=== PATIENT | male | born 1950 | race Caucasian/White ===

== ENCOUNTER 2016-07-26 20:50 | Inpatient (IN) | payer MEDICARE, BC ==
--- NOTE | ~2016-07-26 | DS ---
Discharge Summary [facility] [address] [place]. [address] NAME: ROBERT MCDUFFIE : 50 STATUS : DIS IN PAT#: [id number] AGE: 66 ADM/REG DATE : 07/28/16 MR#: [id number] REPORT SERV DATE: 07/30/16 DICTATED BY: KAY PRITCHETT DATE: 07/29/16 REPORT STATUS : Draft TRANSCRIBED BY: MODL DATE: 07/29/16 ADMISSION DATE: 07/28/2016 DISCHARGE DATE: 07/29/2016 DISCHARGE DIAGNOSES: 1. Syncope, etiology is uncertain. 2. Chronic artery disease, medical treatment was needed, had a mild less than 50% lesion to the LAD. 3. Diabetes mellitus with insulin pump use at home. 4. Hypertension, the patient has been monitored by primary care physician and his labor service representative. CONSULTANTS: Otf Marquis MD. PROCEDURES: Cardiac catheterization, has a diffuse moderate luminal irregularity with 50% disease at the mid portion of the left anterior descending coronary artery. No significant occlusive coronary artery disease and also has a normal left ventricular systolic function. HISTORY OF PRESENT ILLNESS: This is a 66-year-old male patient, who suffers from diabetes type 1, who came to the hospital with a syncopal episode. Please see dictated H and P. HOSPITAL COURSE: He was admitted to the hospital with a syncopal episode evaluation. He has not had a repeated syncopal episode. During the workup, he was found to have a new finding of left bundle-branch block on the electrocardiogram, although his troponin was negative. Was seen by Dr. Marquis from the [facility] and was thought further cardiac evaluation with cardiac catheterization was needed. He had a cardiac catheterization yesterday, did not show any focal occlusive disease. Therefore, medical management was recommended. He will be on aspirin 81 mg once a day and Lipitor 40 mg once at night. His syncopal episode was not well explained from this mild disease from coronary artery disease. I explained to the patient about the current finding and followup plan. Also, he was noted to have a little more blood pressure being slightly elevated than before. Prognosis has been discussed with Dr. Brown and Dr. Merino about his blood pressure. He does have home monitoring at home. At this point, we are not going to start him on any hypertensive medication in the hospital. I will defer ambulatory monitoring to the patient, primary care physician, and labor service representative. Overall, had a stable hospitalization, maximized inpatient benefit, and will be discharged home with aspirin 81 mg once a day, Lipitor 40 mg once at night, and continue his home insulin pump. TIME SPENT: More than 30 minutes in patient education and explanation. EKL/MODL Discharge Summary [address] [address] NAME: ROBERT MCDUFFIE : 50 STATUS : DIS IN PAT#: [id number] AGE: 66 ADM/REG DATE : 07/28/16 MR#: [id number] REPORT SERV DATE: 07/30/16 DICTATED BY: KAY PRITCHETT DATE: 07/29/16 REPORT STATUS : Draft TRANSCRIBED BY: ASHTYN DATE: 07/29/16 Kay Pritchett M.D. / [id number] CC: Sandra Clayton M.D.
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
--- NOTE | ~2016-07-26 | HP ---
History And Physical [facility] [address] [place]. [address] NAME: ROBERT MCDUFFIE : 50 STATUS : ADM Rustam PAT#: [id number] AGE: 66 ADM/REG DATE : 07/26/16 MR#: [id number] REPORT SERV DATE: 07/27/16 DICTATED BY: ARMIN JEONG DATE: 07/27/16 REPORT STATUS : Draft TRANSCRIBED BY: MODL DATE: 07/27/16 DATE OF ADMISSION: 07/26/2016 CHIEF COMPLAINT: A 66-year-old male presenting with a syncopal episode and palpitations. HISTORY OF PRESENT ILLNESS: The patient's history was obtained through careful interview with the patient and , coupled with review of [facility] medical records. The patient states that he has been having intermittent spells for the last three months. He states that about three months ago, he had the first "spell." He was leaving his place of employment and it was raining outside, so he decided to run across the parking lot, as he was making his way across the parking lot running, he suddenly felt extremely dizzy and lightheaded and fell to the ground. When he first tried to get up he felt dizzy again, and this time, he fell and lost consciousness, and a workmate briefly recalls a slight convulsion episode the patient had on the ground in the parking lot. He recovered, however, from the spell and decided to not to pursue any medical professional to evaluate this. Although he has not had quite as dramatic spells since that first episode, he states that he has had a near syncopal episode, usually brought on by exertion about every other week. Despite having these frequent spells, the patient continues to exercise quite frequently. He will go to the gym and run on an elliptical or some kind of treadmill and he states he does not have these symptoms in that context. Then, on the night of admission, he was going out with his . He once again felt as if he wanted to run to the side of the home into his car, but on the way, he stubbed his toe on the driveway pavement and he wonders if this triggered another one of these events, as he suddenly felt lightheaded again, had palpitations, and completely passed out. He fell to the ground and a family member apparently witnessed another convulsion like activity. No one is certain about how long he was completely passed out for, but it seems that was only perhaps 20 or 30 seconds at most. Afterwards, he checked his blood sugar which was 118, and he states that after all of these episodes he has checked his blood sugar and it was never low. There is no shortness of breath. He did develop a chest discomfort and he has had slight discomfort like this in the past. He describes it as a tightness and heaviness and not really "pain." He has no radiation, a 6/10 severity and it seems to be associated with palpitations as well. He did suffer slight nausea, but no vomiting. REVIEW OF SYSTEMS: Otherwise, a 14-point review of systems was obtained and was negative. History And Physical [address] [place]. [address] NAME: ROBERT MCDUFFIE : 50 STATUS : ADM Rustam PAT#: [id number] AGE: 66 ADM/REG DATE : 07/26/16 MR#: [id number] REPORT SERV DATE: 07/27/16 DICTATED BY: ARMIN JEONG DATE: 07/27/16 REPORT STATUS : Draft TRANSCRIBED BY: ASHTYN DATE: 07/27/16 PAST MEDICAL HISTORY: 1. Type 1 diabetes, diagnosed when he was 10 years old in 1959. 2. Pneumonia. 3. Retinopathy. PAST SURGICAL HISTORY: Cholecystectomy and appendectomy. ALLERGIES: PENICILLIN. SOCIAL HISTORY: No tobacco abuse. No alcohol abuse. He is . He has no children. 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 He goes to the gym frequently. FAMILY HISTORY: Mother with diabetes. Father with multiple. CURRENT MEDICATIONS: Include the insulin pump and multivitamin. PHYSICAL EXAMINATION: VITAL SIGNS: Temperature 98.3, pulse 96, blood pressure 157/87, respiratory rate 18, O2 saturation 97% on room air. GENERAL: A pleasant, cooperative male. No evidence of distress. HEENT: Pupils equal, round, and reactive to light. No conjunctival pallor. No scleral icterus. Nares are patent. Oropharynx is clear of obstruction. Mildly dry mucous membranes. NECK: Trachea midline. No thyromegaly. LYMPH: No cervical lymphadenopathy. No supraclavicular lymphadenopathy. RESPIRATORY: Clear to auscultation at bases. No wheezes, rales, or rhonchi. Normal respiratory effort. CARDIOVASCULAR: Regular rate and rhythm. No murmurs, rubs, or gallops. No extremity edema is appreciated. ABDOMEN: Soft, nontender, nondistended. Normal bowel sounds auscultated throughout. No hepatosplenomegaly. DERMATOLOGICAL: Warm and dry extremities. No pallor. No cyanosis. PSYCHIATRIC: Normal affect. Good mood. Alert and oriented x3. LABORATORY DATA: INR 1.0. Troponin negative. White blood count 5.9, hemoglobin 15, hematocrit 43, platelets 189. Sodium 144, potassium 3.8, chloride 107, bicarb 29, BUN 15, creatinine 1.19, glucose 109. STUDIES: 1. Chest x-ray by my own evaluation shows no acute cardiopulmonary process. 2. EKG by my own evaluation shows sinus rhythm, left bundle branch block. 3. CT scan of the brain without contrast shows no acute intracranial process. ASSESSMENT AND PLAN: 1. Syncope with palpitations check orthostatics. Consult Cardiology. Consider Holter monitor or event monitor (?). Chest pain. Check an echocardiogram. Check cardiac stress test. Start on aspirin. History And Physical [address] [place]. [address] NAME: ROBERT MCDUFFIE : 50 STATUS : ADM Rustam PAT#: [id number] AGE: 66 ADM/REG DATE : 07/26/16 MR#: [id number] REPORT SERV DATE: 07/27/16 DICTATED BY: ARMIN JEONG DATE: 07/27/16 REPORT STATUS : Draft TRANSCRIBED BY: MODL DATE: 07/27/16 1. New left bundle branch block. Check an echocardiogram. Check telemetry. 2. Type 1 diabetes. Seems to be well controlled. No reported hypoglycemia. Continue insulin pump. Check hemoglobin A1c. KPL/MAGUIL Armin Jeong M.D. / [id number] CC: Sandra Clayton M.D. David Huffman, M.D.
[~2016-07-26 20:50] MED LIST: ATACAND8 MG PO; INSULIN ASPART SC; MULTIPLE VIT PO
[2016-07-26 20:53] LABS: BASOPHILS 0.3 %; BASOPHILS ABSOLUTE 0.02 10/3/uL (0.0-0.16); EOSINOPHILS 2.7 %; EOSINOPHILS ABSOLUTE 0.16 10/3/uL (0.0-0.53); HEMATOCRIT 43.5 % (40.0-51.0); HEMOGLOBIN 15.5 g/dL (13.6-17.8); IMMATURE GRANULOCYTES 0.3 %; IMMATURE GRANULOCYTES ABSOLUTE 0.02 10/3/uL (0.0-0.11); LYMPHOCYTES 16.5 %; LYMPHOCYTES ABSOLUTE 0.98 10/3/uL (0.67-4.30); MANUAL DIFF NO %; MEAN CORPUS HGB CONC 35.6 g/dL (32.0-36.0); MEAN CORPUSCULAR HEMOGLOB 30.8 pg (26.0-34.0); MEAN CORPUSCULAR VOLUME 86.5 fL (80-100); MEAN PLATELET VOLUME 10.2 fL (9.2-13.0); MONOCYTES 10.1 %; NEUTROPHILS 70.1 %; NEUTROPHILS ABSOLUTE 4.16 10/3/uL (2.02-8.40); PLATELET COUNT 189 10/3/uL (150-400); RBC DISTRIBUTION WIDTH 12.3 % (12.0-16.0); RED CELL COUNT 5.03 10/6/uL (4.7-6.1); WHITE BLOOD CELLS 5.9 10/3/uL (4.5-10.5)
[2016-07-26 21:01] LABS: PROTIME (NOT ORD) 13.5 SEC (12.0-14.5)
[2016-07-26 21:02] LABS: PARTIAL THROMBO TIME 33.7 SEC (22.5-37.2)
[2016-07-26 21:09] LABS: BUN (BLOOD UREA NITROGEN) 15 MG/DL (6-23); CALCIUM, SERUM 8.8 MG/DL (8.5-10.4); CHEST PAIN PROFILE TAT 0 Hrs 22 Mins; CHLORIDE, SERUM 107 MMOL/L (96-112); CO2 (CARBON DIOXIDE) 29 MMOL/L (24-34); CREATININE 1.19 MG/DL (0.70-1.30); GFR AFRICAN AMERICAN 73 ML/MIN (>=60); GFR NON AFRICAN AMERICAN 63 ML/MIN (>=60); GLUCOSE, SERUM 109 MG/DL (60-99); POTASSIUM, SERUM 3.8 MMOL/L (3.5-5.3); SODIUM, SERUM 144 MMOL/L (135-148); TROPONIN I <0.02 NG/ML (<0.05)
[2016-07-27 05:59] LABS: BASOPHILS 0.3 %; BASOPHILS ABSOLUTE 0.02 10/3/uL (0.0-0.16); EOSINOPHILS 2.5 %; EOSINOPHILS ABSOLUTE 0.16 10/3/uL (0.0-0.53); HEMATOCRIT 42.1 % (40.0-51.0); HEMOGLOBIN 14.7 g/dL (13.6-17.8); IMMATURE GRANULOCYTES 0.3 %; IMMATURE GRANULOCYTES ABSOLUTE 0.02 10/3/uL (0.0-0.11); LYMPHOCYTES 24.3 %; LYMPHOCYTES ABSOLUTE 1.55 10/3/uL (0.67-4.30); MEAN CORPUS HGB CONC 34.9 g/dL (32.0-36.0); MEAN CORPUSCULAR HEMOGLOB 30.2 pg (26.0-34.0); MEAN CORPUSCULAR VOLUME 86.4 fL (80-100); MEAN PLATELET VOLUME 10.5 fL (9.2-13.0); MONOCYTES 11.1 %; MONOCYTES ABSOLUTE 0.71 10/3/uL (0.21-1.20); NEUTROPHILS 61.5 %; NEUTROPHILS ABSOLUTE 3.93 10/3/uL (2.02-8.40); PLATELET COUNT 181 10/3/uL (150-400); RBC DISTRIBUTION WIDTH 12.3 % (12.0-16.0); RED CELL COUNT 4.87 10/6/uL (4.7-6.1); WHITE BLOOD CELLS 6.4 10/3/uL (4.5-10.5)
[2016-07-27 06:00] LABS: MANUAL DIFF NO %
[2016-07-27 06:05] LABS: INTERNATIONAL NORMAL RATI 1.1 UNITS (-); PARTIAL THROMBO TIME 33.5 SEC (22.5-37.2); PROTIME (NOT ORD) 13.8 SEC (12.0-14.5)
[2016-07-27 06:29] LABS: A/G RATIO 1.2 (0.7-1.9); ALBUMIN 3.3 G/DL (3.5-5.0); ALKALINE PHOSPHATASE 57 U/L (45-117); BUN (BLOOD UREA NITROGEN) 15 MG/DL (6-23); CALCIUM, SERUM 8.9 MG/DL (8.5-10.4); CHLORIDE, SERUM 111 MMOL/L (96-112); CO2 (CARBON DIOXIDE) 27 MMOL/L (24-34); CREATININE 1.14 MG/DL (0.70-1.30); GFR AFRICAN AMERICAN 77 ML/MIN (>=60); GFR NON AFRICAN AMERICAN 67 ML/MIN (>=60); GLOBULIN 2.7 G/DL (2.5-4.1); SGOT(AST) 15 U/L (5-40); SGPT(ALT) 24 U/L (5-65); SODIUM, SERUM 146 MMOL/L (135-148); TOTAL BILIRUBIN 0.6 MG/DL (0-1.2); TROPONIN I <0.02 NG/ML (<0.05)
[2016-07-27 06:31] LABS: GLUCOSE, SERUM 199 MG/DL (60-99)
[2016-07-27 07:03] LABS: B NATRIURETIC PEPTIDE (BNP) 23.6 PG/ML (0-100)
[2016-07-28 04:25] LABS: BASOPHILS 0.3 %; BASOPHILS ABSOLUTE 0.02 10/3/uL (0.0-0.16); EOSINOPHILS 3.1 %; EOSINOPHILS ABSOLUTE 0.18 10/3/uL (0.0-0.53); HEMATOCRIT 43.5 % (40.0-51.0); HEMOGLOBIN 15.3 g/dL (13.6-17.8); IMMATURE GRANULOCYTES 0.3 %; IMMATURE GRANULOCYTES ABSOLUTE 0.02 10/3/uL (0.0-0.11); LYMPHOCYTES 22.9 %; LYMPHOCYTES ABSOLUTE 1.35 10/3/uL (0.67-4.30); MEAN CORPUS HGB CONC 35.2 g/dL (32.0-36.0); MEAN CORPUSCULAR HEMOGLOB 30.2 pg (26.0-34.0); MEAN CORPUSCULAR VOLUME 85.8 fL (80-100); MEAN PLATELET VOLUME 10.3 fL (9.2-13.0); MONOCYTES 11.2 %; MONOCYTES ABSOLUTE 0.66 10/3/uL (0.21-1.20); NEUTROPHILS 62.2 %; NEUTROPHILS ABSOLUTE 3.66 10/3/uL (2.02-8.40); PLATELET COUNT 177 10/3/uL (150-400); RBC DISTRIBUTION WIDTH 12.4 % (12.0-16.0); RED CELL COUNT 5.07 10/6/uL (4.7-6.1); WHITE BLOOD CELLS 5.9 10/3/uL (4.5-10.5)
[2016-07-28 04:26] LABS: MANUAL DIFF NO %
[2016-07-28 04:28] LABS: INTERNATIONAL NORMAL RATI 1.1 UNITS (-); PROTIME (NOT ORD) 13.6 SEC (12.0-14.5)
[2016-07-28 04:34] LABS: BUN (BLOOD UREA NITROGEN) 18 MG/DL (6-23); CALCIUM, SERUM 8.7 MG/DL (8.5-10.4); CHLORIDE, SERUM 111 MMOL/L (96-112); CHOL/HDL RATIO(NOT ORDER) 3.4 (0-5); CHOLESTEROL 173 MG/DL (< 200); CO2 (CARBON DIOXIDE) 27 MMOL/L (24-34); CREATININE 1.13 MG/DL (0.70-1.30); GFR AFRICAN AMERICAN 78 ML/MIN (>=60); GFR NON AFRICAN AMERICAN 67 ML/MIN (>=60); HDL CHOLESTEROL 51 MG/DL (> 39); LDL CHOLESTEROL 104 MG/DL (< 130); NON-HDL CHOLESTEROL 122 MG/DL (< 160); POTASSIUM, SERUM 3.9 MMOL/L (3.5-5.3); SODIUM, SERUM 145 MMOL/L (135-148); TRIGLYCERIDE 92 MG/DL (< 150)
[2016-07-28 04:35] LABS: GLUCOSE, SERUM 122 MG/DL (60-99)
[2016-07-29] MEDS ORDERED: ASAB PO (13:15)
[2016-07-29] MEDS ORDERED: LIPITOR40 PO (13:16)
[2016-09-09] MEDS ORDERED: CRESTOR5 MG PO (08:34)
[2016-09-09] MEDS ORDERED: NOVOLOGMIX SC (08:34)
[2016-09-10] MEDS ORDERED: ULTRAM50 PO (14:07)
== END 2016-07-29 13:45 | disposition home or self-care (01) | DRG 287 ==
LOC: ER 20:50 → CDU1 22:50 → SSU1 07-28 12:43
PROVIDERS: Internal Medicine; Internal Medicine Cardiovascular Disease; Nurse Practitioner Acute Care
PROC: 4A023N7 Measurement of Cardiac Sampling and Pressure, Left Heart, Percutaneous Approach (ICD-10-PCS; principal; 2016-07-26)
PROC: B2151ZZ Fluoroscopy of Left Heart using Low Osmolar Contrast (ICD-10-PCS; 2016-07-26)
PROC: B2111ZZ Fluoroscopy of Multiple Coronary Arteries using Low Osmolar Contrast (ICD-10-PCS; 2016-07-26)
DX: I25.10 Atherosclerotic heart disease of native coronary artery without angina pectoris (principal); E10.319 Type 1 diabetes mellitus with unspecified diabetic retinopathy without macular edema; I10 Essential (primary) hypertension; R55 Syncope and collapse; R07.9 Chest pain, unspecified; E10.9 Type 1 diabetes mellitus without complications; Z96.41 Presence of insulin pump (external) (internal); I44.7 Left bundle-branch block, unspecified; W18.30XA Fall on same level, unspecified, initial encounter; Y92.007 Garden or yard of unspecified non-institutional (private) residence as the place of occurrence of the external cause; Z79.4 Long term (current) use of insulin; Z88.0 Allergy status to penicillin; Z88.1 Allergy status to other antibiotic agents; Z83.3 Family history of diabetes mellitus; Z82.49 Family history of ischemic heart disease and other diseases of the circulatory system; Z98.890 Other specified postprocedural states
CPT/HCPCS: 70450; 71010; 80048; 80053; 80061; 82962; 83036; 83735; 83880; 84443; 84484; 85025; 85610; 85730; 93005; 93306; 93458; 93880; 99152; 99153; 99285; A9270-GY; C1769; C1887; C1894; J2250; J3010; Q9967

== ENCOUNTER 2016-09-29 13:25 | Emergency (ER) | payer MEDICARE, BC ==
[2016-09-29 12:26] LABS: BASOPHILS 0.2 %; BASOPHILS ABSOLUTE 0.01 10/3/uL (0.0-0.16); EOSINOPHILS 3.3 %; EOSINOPHILS ABSOLUTE 0.16 10/3/uL (0.0-0.53); HEMATOCRIT 43.8 % (40.0-51.0); HEMOGLOBIN 15.6 g/dL (13.6-17.8); IMMATURE GRANULOCYTES 0.2 %; IMMATURE GRANULOCYTES ABSOLUTE 0.01 10/3/uL (0.0-0.11); LYMPHOCYTES 17.7 %; LYMPHOCYTES ABSOLUTE 0.86 10/3/uL (0.67-4.30); MANUAL DIFF NO %; MEAN CORPUS HGB CONC 35.6 g/dL (32.0-36.0); MEAN CORPUSCULAR HEMOGLOB 30.2 pg (26.0-34.0); MEAN CORPUSCULAR VOLUME 84.9 fL (80-100); MEAN PLATELET VOLUME 9.9 fL (9.2-13.0); MONOCYTES 11.3 %; MONOCYTES ABSOLUTE 0.55 10/3/uL (0.21-1.20); NEUTROPHILS 67.3 %; NEUTROPHILS ABSOLUTE 3.27 10/3/uL (2.02-8.40); PLATELET COUNT 160 10/3/uL (150-400); RBC DISTRIBUTION WIDTH 12.2 % (12.0-16.0); RED CELL COUNT 5.16 10/6/uL (4.7-6.1); WHITE BLOOD CELLS 4.9 10/3/uL (4.5-10.5)
[2016-09-29 12:33] LABS: PARTIAL THROMBO TIME 32.2 SEC (22.5-37.2)
[2016-09-29 12:50] LABS: BUN (BLOOD UREA NITROGEN) 15 MG/DL (6-23); CALCIUM, SERUM 9.5 MG/DL (8.5-10.4); CHEST PAIN PROFILE TAT 0 Hrs 28 Mins; CHLORIDE, SERUM 109 MMOL/L (96-112); CO2 (CARBON DIOXIDE) 31 MMOL/L (24-34); CREATININE 1.06 MG/DL (0.70-1.30); GFR AFRICAN AMERICAN 84 ML/MIN (>=60); GFR NON AFRICAN AMERICAN 73 ML/MIN (>=60); SODIUM, SERUM 145 MMOL/L (135-148); TROPONIN I <0.02 NG/ML (<0.05)
[2016-09-29 12:51] LABS: GLUCOSE, SERUM 102 MG/DL (60-99)
[~2016-09-29 13:25] MED LIST changes: +ASAB PO; +CRESTOR5 MG PO; +LIPITOR40 PO; +NOVOLOGMIX SC; +ULTRAM50 PO
== END 2016-09-29 15:22 | disposition home or self-care (01) ==
LOC: ER 13:25
PROVIDERS: Emergency Medicine
DX: R55 Syncope and collapse (principal); E10.9 Type 1 diabetes mellitus without complications; Z95.0 Presence of cardiac pacemaker; Z87.01 Personal history of pneumonia (recurrent); Z88.0 Allergy status to penicillin; Z88.1 Allergy status to other antibiotic agents; Z79.82 Long term (current) use of aspirin
CPT/HCPCS: 71010; 80048; 83735; 84484; 85025; 85610; 85730; 93005; 99284